=== PATIENT | male | born 1970 | race Caucasian/White ===

== ENCOUNTER 2022-07-12 10:28 | Outpatient (CLI) | payer BC ==
[2022-07-12 19:22] LABS: BASOPHILS # (AUTO) 0.1 10^3/uL (0.0-0.1); EOSINOPHILS # (AUTO) 0.1 10^3/uL (0.0-0.7); EOSINOPHILS % (AUTO) 2.2 %; HCT - HEMATOCRIT 47.1 % (42.0-52.0); HGB - HEMOGLOBIN 16.3 g/dL (14.0-18.0); LYMPHOCYTES # (AUTO) 1.4 10^3/uL (1.5-3.5); LYMPHOCYTES % (AUTO) 23.7 %; MEAN CORPUSCULAR HEMOGLOBIN 29.6 pg (27.0-31.0); MEAN CORPUSCULAR HGB CONC 34.6 g/dL (32.0-36.0); MEAN CORPUSCULAR VOLUME 85.6 fL (80.0-94.0); MEAN PLATELET VOLUME 9.3 fL (7.4-11.4); MONOCYTES # (AUTO) 0.6 10^3/uL (0.0-1.0); MONOCYTES % (AUTO) 10.3 %; NEUTROPHILS # (AUTO) 3.6 10^3/uL (1.5-6.6); NEUTROPHILS % (AUTO) 62.1 %; PLT - PLATELET COUNT 233 10^3/uL (130-450); RED CELL DISTRIBUTION WIDTH 12.1 % (12.0-15.0); WHITE BLOOD COUNT 5.8 x10^3/uL (4.8-10.8)
[2022-07-12 19:42] LABS: ALBUMIN 4.6 g/dL (3.2-5.5); ALBUMIN/GLOBULIN RATIO 1.6 (1.0-2.2); ALKALINE PHOSPHATASE 51 IU/L (42-121); ALT ALANINE AMINOTRANSFERASE 47 IU/L (10-60); AST ASPARTATE AMINOTRANSFERASE 25 IU/L (10-42); BILIRUBIN,TOTAL 1.3 mg/dL (0.2-1.0); BUN - BLOOD UREA NITROGEN 16 mg/dL (6-20); CALCIUM 9.4 mg/dL (8.5-10.3); CARBON DIOXIDE - CO2 28 mmol/L (21-32); CHLORIDE 102 mmol/L (101-111); CHOL/HDL RATIO 4.4 (<5.0); CHOLESTEROL 175 mg/dL; CREATININE 0.9 mg/dL (0.6-1.2); GFR - MDRD 88 (>89); GLUCOSE 169 mg/dL (70-100); HDL CHOLESTEROL 40 mg/dL; LDL CHOLESTEROL,CALCULATED 95 mg/dL; LDL/HDL RATIO 2.4 (<3.6); POTASSIUM 4.6 mmol/L (3.5-5.0); SODIUM 136 mmol/L (135-145); TOTAL PROTEIN 7.4 g/dL (6.7-8.2); TRIGLYCERIDES 198 mg/dL; VLDL CHOLESTEROL 40 mg/dL
[2022-07-12 19:51] LABS: THYROID STIMULATING HORMONE 0.74 uIU/mL (0.34-5.60)
== END 2022-07-12 10:29 | disposition home or self-care (01) ==
LOC: LAB.N 10:28
PROVIDERS: ATTEND Physician Assistant
DX: N48.6 Induration penis plastica (principal); Z13.9 Encounter for screening, unspecified; Z13.220 Encounter for screening for lipoid disorders; Z13.29 Encounter for screening for other suspected endocrine disorder
CPT/HCPCS: 36415; 80053; 80061; 83721; 84153; 84443; 85025

== ENCOUNTER 2023-02-21 09:40 | Outpatient (CLI) | payer BC ==
[2023-02-21 20:35] LABS: ALBUMIN 4.5 g/dL (3.2-5.5); ALBUMIN/GLOBULIN RATIO 1.7 (1.0-2.2); BILIRUBIN,TOTAL 0.7 mg/dL (0.2-1.0); CALCIUM 9.2 mg/dL (8.5-10.3); CREATININE 0.9 mg/dL (0.6-1.2); POTASSIUM 4.9 mmol/L (3.5-5.0); TOTAL PROTEIN 7.2 g/dL (6.7-8.2)
[2023-02-21 20:41] LABS: CREATININE,URINE 148.7 mg/dL; MICROALBUMIN,URINE 0.6 mg/dL (0-300.0)
[2023-02-21 21:10] LABS: ESTIMATED AVERAGE GLUCOSE 131 mg/dL (70-100); HEMOGLOBIN A1c% 6.2 % (4.27-6.07)
== END 2023-02-21 09:41 | disposition home or self-care (01) ==
LOC: LAB.N 09:40
PROVIDERS: ATTEND Physician Assistant
DX: E11.9 Type 2 diabetes mellitus without complications (principal)
CPT/HCPCS: 36415; 80053; 82043; 82570; 83036

== ENCOUNTER 2023-04-30 08:26 | Day surgery (SDC) | payer BC ==
[~2023-04-30 08:26] MED LIST: LIDOCAINE-PF 2% 10 ML AMP SUBQ ONE; PROPOFOL 500 MG/50 ML 500 MG/50 ML VIAL ONE; ePHEDrine 50 MG/ML VIAL IVP ONE
[2023-04-30] MEDS ORDERED: LACTATED RINGERS 1,000 ML IV ONE ×3 (08:38→10:59)
--- NOTE | 2023-04-30 09:10 | ANESTHESIA ---
Pre-Anesthesia VS, & Labs - Diagnosis screening - Procedure colonoscopy Vital Signs: Temp Pulse Resp BP Pulse Ox O2 Flow Rate 36.0 C L 67 12 118/75 95 04/30/23 08:38 04/30/23 08:38 04/30/23 08:38 04/30/23 08:38 04/30/23 08:38 Height: 5 ft 8 in Weight (kg): 78.3 kg Body Mass Index: 26.2 BMI Classification: Overweight - NPO >8 hours Home Medications and Allergies Allergies/Adverse Reactions: Allergies Allergy/AdvReac Type Severity Reaction Status Date / Time No Known Drug Allergies Allergy Verified 08/04/22 02:09 Anes History & Medical History - Anesthetic History Anesthesia Complications: reports: No previous complications Family history of Anesthesia Complications: Denies Family history of Malignant Hyperthermia: Denies - Medical History Cardiovascular: reports: None Pulmonary: reports: None Gastrointestinal: reports: None Urinary: reports: None Musculoskeletal: reports: None Endocrine/Autoimmune: reports: None Skin: reports: None Smoking Status: Never smoker - Surgical History Eyes Ears Nose Throat (EENT): reports: Other Exam General: Alert, Oriented x3, Cooperative Dental: WNL Mouth Openin Fingerbreadth Neck Mobility: Normal Mallampati classification: I Thyromental Distance: 4-6 cm Respiratory: Lungs clear Cardiovascular: Regular rate Plan Anesthesia Type: General, Total IV Consent for Procedure(s) Verified and Reviewed: Yes Code Status: Attempt Resuscitation ASA classification: 1-Healthy patient Is this case an emergency?: No
--- NOTE | 2023-04-30 10:16 | HISTORY & PHYSICAL EXAMINATION ---
Chief Complaint - Chief Complaint Chief Complaint: here for colonoscopy History of Present Illness - History Obtained From Records Reviewed: yes History obtained from: pt Exam Limitations: none - History of Present Illness HPI Comment/Other: here for colon cancer screening. no prior screening. no gi problems. normal labs History - Past Medical History Cardiovascular: reports: None Respiratory: reports: None Endocrine/Autoimmune: reports: None GI: reports: None : reports: None HEENT: reports: None Psych: reports: None Musculoskeletal: reports: None Derm: reports: None MRSA Hx?: No - Past Surgical History HEENT: reports: Other - POLST Patient has POLST: No Meds/Allgy - Home Medications Home Medications: Ambulatory Orders Medication Instructions Recorded Confirmed metFORMIN [Glucophage] 500 mg PO BIDWM 04/30/23 04/30/23 - Allergies Allergies/Adverse Reactions: Allergies Allergy/AdvReac Type Severity Reaction Status Date / Time No Known Drug Allergies Allergy Verified 08/04/22 02:09 Review of Systems - Other Findings Other Findings: 10 pt ros as above otherwise unremarkable Exam - Vital Signs Vital Signs: Vital Signs x48h Temp Pulse Resp BP Pulse Ox 04/30/23 08:38 36.0 C L 67 12 118/75 95 - Physical Exam General Appearance: positive: No acute distress, Alert Eyes Bilateral: positive: PERRL, EOMI, No scleral icterus ENT: positive: No signs of dehydration Neck: positive: No JVD, Trachea midline Respiratory: positive: No respiratory distress Cardiovascular: positive: Regular rate & rhythm Abdomen: positive: No distention Neurologic/Psychiatric: positive: Oriented x3 Conclusion/Plan - Problem List (1) Colon cancer screening Conclusion/Plan: plan colonoscopy. parq held and consent obtained
[2023-04-30] MEDS ORDERED: SIMETHICONE 40 MG/0.6 ML 30 ML BOTTLE PO ONE (10:32)
[2023-04-30 12:19] VITALS: BP 122/78
== END 2023-04-30 08:27 | disposition home or self-care (01) ==
LOC: SDS 08:26
PROVIDERS: ATTEND Surgery
PROC: 0DBL8ZZ Excision of Transverse Colon, Via Natural or Artificial Opening Endoscopic (ICD-10-PCS; principal; 2023-04-30 09:45)
DX: Z12.11 Encounter for screening for malignant neoplasm of colon (principal); D12.3 Benign neoplasm of transverse colon; K63.5 Polyp of colon; K57.30 Diverticulosis of large intestine without perforation or abscess without bleeding
CPT/HCPCS: 45380; 45385; A9270; J7120

== ENCOUNTER 2023-09-03 10:04 | Day surgery (SDC) | payer BC ==
[~2023-09-03 10:04] MED LIST changes: -LIDOCAINE-PF 2% 10 ML AMP SUBQ ONE; -PROPOFOL 500 MG/50 ML 500 MG/50 ML VIAL ONE; +ceFAZolin 2 GM VIAL ONE; -ePHEDrine 50 MG/ML VIAL IVP ONE
[2023-09-03] MEDS ORDERED: LACTATED RINGERS 1,000 ML IV ONE ×2 (10:25→14:19)
[2023-09-03] MEDS ORDERED: PROPOFOL 500 MG/50 ML 500 MG/50 ML VIAL ONE (11:19)
[2023-09-03] MEDS ORDERED: ROCURONIUM 50 MG/5 ML VIAL ONE (11:19)
[2023-09-03] MEDS ORDERED: ONDANSETRON 4 MG/2 ML VIAL IVP PRN (11:21)
[2023-09-03] MEDS ORDERED: HYDROmorphone 0.5 MG/0.5 ML SYRINGE IVP PRN ×3 (11:21→15:12)
[2023-09-03] MEDS ORDERED: ePHEDrine 50 MG/ML VIAL IVP PRN (11:21)
[2023-09-03] MEDS ORDERED: ATROPINE ABBOJECT 1 MG/10 ML SYRINGE IVP PRN (11:21)
[2023-09-03] MEDS ORDERED: fentaNYL 100 MCG/2 ML VIAL IVP PRN (11:21)
[2023-09-03] MEDS ORDERED: NALOXONE 0.4 MG/ML VIAL IVP PRN (11:21)
--- NOTE | 2023-09-03 11:21 | ANESTHESIA ---
Pre-Anesthesia VS, & Labs - Diagnosis r inguinal & umbilical hernia - Procedure r inguinal & umbilical hernia repair Vital Signs: Temp Pulse Resp BP Pulse Ox O2 Flow Rate 36.1 C L 71 15 126/84 H 97 0 09/03/23 10:25 09/03/23 10:25 09/03/23 10:25 09/03/23 10:25 09/03/23 10:25 09/03/23 10:25 Height: 5 ft 8 in Weight (kg): 79.5 kg Body Mass Index: 26.6 BMI Classification: Overweight - NPO >8 hours - Lab Results Current Lab Results: Laboratory Tests 09/03/23 10:28: POC Whole Bld Glucose 123 H Lab results reviewed: Yes Home Medications and Allergies metFORMIN [Glucophage] 500 mg PO DAILY 04/30/23 Allergies/Adverse Reactions: Allergies Allergy/AdvReac Type Severity Reaction Status Date / Time No Known Drug Allergies Allergy Verified 08/04/22 02:09 Anes History & Medical History - Anesthetic History Anesthesia Complications: reports: No previous complications Family history of Anesthesia Complications: Denies Family history of Malignant Hyperthermia: Denies - Medical History Cardiovascular: reports: None Pulmonary: reports: None Gastrointestinal: reports: None Urinary: reports: Kidney stones Neuro: reports: None Musculoskeletal: reports: None Endocrine/Autoimmune: reports: None Skin: reports: None Smoking Status: Never smoker Psychosocial: reports: No issues indicated - Surgical History General: reports: Colonoscopy Eyes Ears Nose Throat (EENT): reports: Other Exam General: Alert, Oriented x3, Cooperative Dental: WNL Mouth Openin Fingerbreadth Neck Mobility: Normal Mallampati classification: II Thyromental Distance: 4-6 cm Respiratory: Lungs clear Cardiovascular: Regular rate Plan Anesthesia Type: General Consent for Procedure(s) Verified and Reviewed: Yes Code Status: Attempt Resuscitation ASA classification: 1-Healthy patient Is this case an emergency?: No
[2023-09-03] MEDS ORDERED: fentaNYL 100 MCG/2 ML VIAL ONE (11:22)
[2023-09-03] MEDS ORDERED: BUPIVACAINE 0.25% PF 30 ML VIAL ONE (11:27)
[2023-09-03] MEDS ORDERED: LIDOCAINE-MPF 1% 30 ML VIAL ONE (11:27)
--- NOTE | 2023-09-03 11:29 | HISTORY & PHYSICAL EXAMINATION ---
Chief Complaint - Chief Complaint Chief Complaint: here for hernia surgery History of Present Illness - History Obtained From Records Reviewed: yes History obtained from: pt Exam Limitations: none - History of Present Illness HPI Comment/Other: large right inguinal hernia and umbilical hernia. both getting worse and more symptomatic. History - Past Medical History Cardiovascular: reports: None Respiratory: reports: None Neuro: reports: None Endocrine/Autoimmune: reports: None GI: reports: None : reports: Kidney stones HEENT: reports: Chronic vision loss Psych: reports: None Musculoskeletal: reports: None Derm: reports: None MRSA Hx?: No - Past Surgical History General: reports: Colonoscopy HEENT: reports: Other - POLST Patient has POLST: No Meds/Allgy - Home Medications Home Medications: Ambulatory Orders Medication Instructions Recorded Confirmed metFORMIN [Glucophage] 500 mg PO DAILY 04/30/23 08/25/23 - Allergies Allergies/Adverse Reactions: Allergies Allergy/AdvReac Type Severity Reaction Status Date / Time No Known Drug Allergies Allergy Verified 08/04/22 02:09 Exam - Vital Signs Vital Signs: Vital Signs x48h Temp Pulse Resp BP Pulse Ox O2 Flow Rate 09/03/23 10:25 36.1 C L 71 15 126/84 H 97 0 - Physical Exam General Appearance: positive: No acute distress, Alert Eyes Bilateral: positive: PERRL, EOMI, No scleral icterus ENT: positive: No signs of dehydration Neck: positive: No JVD, Trachea midline Respiratory: positive: Breath sounds nml Cardiovascular: positive: Regular rate & rhythm Abdomen: positive: Other (large right inguinal hernia and umbilical hernia) Neurologic/Psychiatric: positive: Oriented x3 Conclusion/Plan - Problem List (1) Inguinal hernia Conclusion/Plan: symptomatic and large rih and umbilical hernia. plan open repairs with mesh. parq held and consent obtained - Lab Results Lab results reviewed: Yes
[2023-09-03] MEDS ORDERED: LACTATED RINGERS 1,000 ML IV SCH (12:00)
[2023-09-03] MEDS ORDERED: ONDANSETRON 4 MG/2 ML VIAL ONE (12:02)
[2023-09-03] MEDS ORDERED: DEXAMETHASONE 4 MG/ML VIAL ONE (12:02)
[2023-09-03] MEDS ORDERED: LIDOCAINE 1% 50 ML MDV SUBQ ONE (12:18)
[2023-09-03] MEDS ORDERED: BUPIVACAINE 0.25% PF 30 ML VIAL SUBQ ONE (12:20)
[2023-09-03] MEDS ORDERED: ePHEDrine 50 MG/ML VIAL IVP ONE (13:23)
[2023-09-03] MEDS ORDERED: SUGAMMADEX 200 MG/2 ML VIAL IVP ONE (13:57)
[2023-09-03] MEDS ORDERED: LIDOCAINE-PF 2% 10 ML AMP SUBQ ONE (14:14)
[2023-09-03] MEDS ORDERED: HYDROcod/ACETAM 5/325 MG TABLET PO PRN (14:27)
--- NOTE | 2023-09-03 14:49 | OPERATIVE REPORT ---
Operative Report - General Procedure Date: 09/03/23 Planned Procedure: open repair inguinal hernia and umbilical hernia Pre-Op Diagnosis: inguinal hernia and umbilical hernia Procedure Performed: open repair slider type inguinal hernia and open repair 3 x 6 cm ventral hernia Post Op Diagnosis: slider inguinal hernia and umbilical hernia and supraumbilical hernia - Procedure Note Primary Surgeon: zara munguia Anesthesia Technique: General ET tube, Local Pathology: benign tissue not sent Estimated Blood Loss (mL): 2 Drain/Tube Type: Other (none) Indications: enlarging painful hernia bulges Findings: 3.5 cm umbilcal hernia and 2 cm ventral hernia 1 cm cephalad slider inguinal hernia with bladder Complications: none - Other Other Information/Narrative: The patient was properly identified brought to the operating room and placed in supine position. Sequential compression devices were placed. General endotracheal anesthesia was induced. He was prepped and draped in a sterile fashion and given preoperative antibiotics. A 2 cm incision was made cephalad of the umbilicus and extended left lateral of the umbilicus. Dissection proceeded sharply. Umbilical skin was sharply excised away from the umbilical hernia. Subcutaneous tissue was mobilized back from the fascial defect edge. An additional hernia was identified cephalad of the umbilical hernia. The hernia sacs were carefully released with cutting current cautery. The small bridge of fascia between the 2 hernias was released. Total defect measured approximately 3 x 6 cm. The preperitoneal space was then carefully developed. Approximately 1-1/2 x 3 inch polypropylene mesh was placed preperitoneal and secured with approximately a dozen OTycron sutures. Additional three-point interrupted 0 Tycron sutures were placed closing the fascia over the mesh. The mesh lay in good position without tension. No apparent complications. Local skin was tacked back down to fascia with interrupted 2-0 Vicryl suture. Subcutaneous tissue was closed with interrupted 3-0 Vicryl suture. Skin was closed with a running 4-0 Monocryl subcuticular suture. He tolerated the procedure well. The inguinal hernia was then addressed. A 5 cm right inguinal incision was made in the direction of Tyree's lines just cephalad of the pubic tubercle. Dissection proceeded with cutting current cautery. The superficial epigastric vein was identified clamped divided and tied with 3-0 Vicryl. Dissection proceeded down to the aponeurosis. This was carefully opened and in the direction of its fibers. The ilioinguinal nerve was identified and kept with the cord structures. He had a significant amount of herniated preperitoneal adipose tissue. Approximately 3 x 6 cm and 2 x 5 cm of preperito berta adipose tissue was mobilized off from the cord structures clamped divided and tied with 2-0 silk. The cord structures were then more easily brought up. Patient had a sliding-type indirect inguinal hernia. The hernia sac was opened. The corner of the bladder was carefully mobilized off of the hernia sac and reduced. The hernia sac was then closed with a 2-0 silk pursestring suture. Redundant sac material was removed. Polypropylene mesh was then cut to size and placed Vivien fashion. The mesh was secured with interrupted 0 Tycron sutures to the shelving border of Poupart's ligament along the pubic tubercle area and medially along musculature fascia of the internal oblique. The medial tail of the mesh was secured to the shelving border of Poupart's ligament with additional interrupted 0 Tycron suture recreating the internal ring of appropriate size. Aponeurosis was closed with a running 2-0 Vicryl suture. Cedrick's was closed with interrupted 3-0 Vicryl suture. Skin was closed with a running 4-0 Monocryl subcuticular suture. Dressings were applied. Tolerated the procedure well was awakened and brought to recovery in good condition.
[2023-09-03] MEDS ORDERED: HYDROmorphone 0.5 MG/0.5 ML SYRINGE ONE (15:20)
[2023-09-03 15:52] VITALS: BP 109/77; O2SAT 95
--- NOTE | 2023-09-03 16:29 | ANESTHESIA POST OP EVALUATION ---
Anesthesia Post Eval - Post Anesthesia Eval Vitals: Last Vital Signs Temp 36.4 C L 09/03/23 15:48 Pulse 96 09/03/23 15:48 Resp 16 09/03/23 15:48 BP 109/77 09/03/23 15:48 Pulse Ox 95 09/03/23 15:48 O2 Flow Rate 0 09/03/23 10:25 CV Function Including HR & BP: Stable Pain Control: Satisfactory Nausea & Vomiting: Negative Mental Status: Baseline Respiratory Status: Airway Patent Hydration Status: Satisfactory Anesthesia Complications: None
== END 2023-09-03 10:05 | disposition home or self-care (01) ==
LOC: SDS 10:04
PROVIDERS: ATTEND Surgery
DX: K40.90 Unilateral inguinal hernia, without obstruction or gangrene, not specified as recurrent (principal); K42.9 Umbilical hernia without obstruction or gangrene; K43.9 Ventral hernia without obstruction or gangrene
CPT/HCPCS: 49525; 49593; A9270; C1781; J1170; J7120

== ENCOUNTER 2023-09-28 14:43 | Outpatient (CLI) | payer BC ==
[2023-09-28 18:34] LABS: BUN - BLOOD UREA NITROGEN 18 mg/dL (6-20); CALCIUM 9.9 mg/dL (8.5-10.3); CARBON DIOXIDE - CO2 30 mmol/L (21-32); CHLORIDE 105 mmol/L (101-111); CHOL/HDL RATIO 3.3 (<5.0); CHOLESTEROL 173 mg/dL; CREATININE 0.9 mg/dL (0.6-1.3); GFR - MDRD 88 (>89); GLUCOSE 106 mg/dL (74-104); HDL CHOLESTEROL 53 mg/dL; LDL CHOLESTEROL,CALCULATED 97 mg/dL; LDL/HDL RATIO 1.8 (<3.6); POTASSIUM 4.8 mmol/L (3.5-4.5); SODIUM 139 mmol/L (135-145); TRIGLYCERIDES 114 mg/dL (48-352); VLDL CHOLESTEROL 23 mg/dL
[2023-09-28 21:14] LABS: ESTIMATED AVERAGE GLUCOSE 128 mg/dL (70-100); HEMOGLOBIN A1c% 6.1 % (4.27-6.07)
== END 2023-09-28 14:44 | disposition home or self-care (01) ==
LOC: LAB.N 14:43
PROVIDERS: ATTEND Physician Assistant
DX: E11.9 Type 2 diabetes mellitus without complications (principal)
CPT/HCPCS: 36415; 80048; 80061; 83036; 83721